=== PATIENT | female | born 1985 | race American Indian/Alaskan Native ===

== ENCOUNTER 2018-04-24 04:37 | Inpatient (IN) | payer BC ==
[2018-04-24 05:19] VITALS: BMI 29.9
[2018-04-24] MEDS ORDERED: Lactated Ringer's 1,000 ML IV ONE (05:44)
[2018-04-24] MEDS ORDERED: cefOXitin IV 2 gm in Dextrose 2 GM/50 ML BAG IVPB ONE (05:47)
[2018-04-24] MEDS ORDERED: Sodium Citrate/Citric Acid 15 ml Sol PO ONE (06:00)
[2018-04-24] MEDS ORDERED: Sodium Citrate/Citric Acid 15 ml Sol ONE (06:07)
[2018-04-24] MEDS ORDERED: Oxytocin 20 units in LR 2,000 ML IV ONE (06:07)
[2018-04-24 06:09] LABS: BASO % 0.6 % (0.0-2.0); EOS % 0.4 % (0.0-4.0); HEMOGLOBIN 9.4 g/dL (11.0-16.0); LYMPH # 1.5 K/uL (1.0-4.3); LYMPH % 25.3 % (20.0-40.0); MEAN CELL VOLUME 75.6 fL (81.0-99.0); MEAN CORPUSCULAR HEMOGLOBIN 23.7 pg (27.0-31.0); MEAN CORPUSCULAR HGB CONC 31.4 g/dL (33.0-37.0); MEAN PLATELET VOLUME 10.6 fL (7.2-11.7); MONO # 0.5 K/uL (0.0-0.8); MONO % 9.1 % (0.0-10.0); NEUT # 3.8 K/uL (1.8-7.0); NEUT % 64.6 % (50.0-75.0); NRBC % 0.3 % (0.0-2.0); RBC 3.98 Mil/uL (3.80-5.20); RED CELL DISTRIBUTION WIDTH 20.7 % (11.5-14.5); WHITE BLOOD COUNT 5.8 K/uL (4.8-10.8)
[2018-04-24] MEDS ORDERED: Morphine 1 mg/ml preservative-free Inj(Duramorph) ONE (06:10)
[2018-04-24] MEDS ORDERED: ePHEDrine 50 mg/ml Inj ONE (06:11)
[2018-04-24 06:15] LABS: SQUAMOUS EPITHIAL 46 /hpf (0-5); URINE BACTERIA FEW (<OCC); URINE BILIRUBIN NEGATIVE (NEGATIVE); URINE BLOOD NEGATIVE (NEGATIVE); URINE CLARITY Hazy (Clear); URINE COLOR Yellow (YELLOW); URINE GLUCOSE (UA) NORMAL (Normal); URINE LEUKOCYTE ESTERASE TRACE Leu/uL (Negative); URINE PROTEIN 1+ mg/dL (NEGATIVE); URINE UROBILINOGEN NORMAL mg/dL (0.2-1.0)
--- NOTE | 2018-04-24 06:17 | OBHP ---
Datetime: 04/24/2018 06:09 IP Adm Impression: Term, intrauterine ; No Active Labor; Intact Membranes IP Chief Complaint Other: Previous C/S x 2 IP Admit Plan: Admit to unit; Initiate Section protocol Pelvic Type - PN: Adequate Extremities - PN: Normal Abdomen - PN: Normal Back - PN: Normal Breast - PN: Not Done Lungs - PN: Normal Heart - PN: Normal Thyroid - PN: Normal Neurologic - PN: Normal HEENT - PN: Normal General - PN: Normal FHR - Baseline A Provider: 140 Membranes, Provider: Intact Contraction Comments Provider: Irregular EGA AdmitDate IP: 39.5 Vital Signs Provider: Reviewed IP Chief Complaint: Uterine contractions; Scheduled Section; Other NICHD Variability Prov Fetus A: Moderate 6-25bpm NICHD Accel Fetus A IP Provider: 10X10 Dilatation, Provider: 0 Effacement, Provider: 50 Station, Provider: floating Genitourinary Exam: Normal DTRs - PN: Normal
[2018-04-24 06:29] LABS: ALB/GLOB RATIO 1.5 (1.0-2.1); ALT/SGPT 12 U/L (9-52); AST/SGOT 18 U/L (14-36); BLOOD UREA NITROGEN 6 mg/dL (7-17); GFR NON-AFRICAN AMERICAN > 60
[2018-04-24] MEDS ORDERED: Oxytocin 10 Units/ml Inj ONE (06:46)
--- NOTE | 2018-04-24 08:17 | OBADHP ---
Datetime: 04/24/2018 06:09 IP Chief Complaint Other: Previous C/S x 2 Admit Comment, IP Provider: 33 yo female with an IUP at 39.5 weeks and presents with c/o of UC's and was schedule for a repeat C/S but wanted to ask questions re a . I examined the patient and she was closed and with appears to be a large baby. All of her questions were answered to her fu ll satisfaction and she requested to continue with the plan of repeat C/S. Admits to adequate FM and denies LOF, VB or VD. Denies any issues with her . PMHx: Negative PSHx: C/S x 2 Meds: PNV NKDA Social Hx: Negative x 3 Pe: see above A_P Term Previous C/S x 2 Irregular contractions with a closed cx For repeat C/S, per Dr. Fitzpatrick Will admit at this time Admitting and Pre-Op orders placed NST Reactive Pelvic Type - PN: Adequate Extremities - PN: Normal Abdomen - PN: Normal Back - PN: Normal Breast - PN: Not Done Lungs - PN: Normal Heart - PN: Normal Thyroid - PN: Normal Neurologic - PN: Normal HEENT - PN: Normal General - PN: Normal Presentation-Admit: Vertex FHR - Baseline A Provider: 140 Membranes, Provider: Intact Contraction Comments Provider: Irregular Gestation - Est Wks by US: 39.5 IP Hx Assessment: No care records available at this time Vital Signs Provider: Reviewed IP Chief Complaint: Uterine contractions; Scheduled Section; Other NICHD Variability Prov Fetus A: Moderate 6-25bpm NICHD Accel Fetus A IP Provider: 10X10 FHR Category Provider Fetus A: Category I NICHD Decel Fetus A IP Provider: None Dilatation, Provider: 0 Effacement, Provider: 50 Station, Provider: floating Genitourinary Exam: Normal DTRs - PN: Normal EGA AdmitDate IP: 39.5 IP Adm Impression: Term, intrauterine ; No Active Labor; Intact Membranes IP Admit Plan: Admit to unit; Initiate Section protocol
[2018-04-24 09:47] LABS: SQUAMOUS EPITHIAL < 1 /hpf (0-5); URINE BILIRUBIN NEGATIVE (NEGATIVE); URINE BLOOD NEGATIVE (NEGATIVE); URINE CLARITY Clear (Clear); URINE COLOR Straw (YELLOW); URINE GLUCOSE (UA) NORMAL (Normal); URINE LEUKOCYTE ESTERASE NEG Leu/uL (Negative); URINE PROTEIN 1+ mg/dL (NEGATIVE); URINE UROBILINOGEN NORMAL mg/dL (0.2-1.0)
[2018-04-24] MEDS: Prenatal Multivit/Folic Acid/Iron Tab PO SCH (09:54)
[2018-04-24] MEDS: Simethicone 80 mg Chewtab PO SCH ×4 (09:54→22:31)
[2018-04-24] MEDS: Oxycodone/Acetaminophen 5/325 mg Tab PO PRN ×2 (13:33→20:33)
[2018-04-24] MEDS ORDERED: DiphenhydrAMINE 50 mg/ml Inj IVP PRN (20:18)
[2018-04-24] MEDS ORDERED: DiphenhydrAMINE 50 mg/ml Inj ONE (20:32)
[2018-04-25] MEDS: Oxycodone/Acetaminophen 5/325 mg Tab PO PRN ×5 (02:00→19:31)
[2018-04-25 08:39] LABS: HEMOGLOBIN 9.1 g/dL (11.0-16.0); MEAN CELL VOLUME 74.8 fL (81.0-99.0); MEAN CORPUSCULAR HEMOGLOBIN 23.9 pg (27.0-31.0); MEAN CORPUSCULAR HGB CONC 31.9 g/dL (33.0-37.0); MEAN PLATELET VOLUME 9.9 fL (7.2-11.7); RBC 3.8 Mil/uL (3.80-5.20); RED CELL DISTRIBUTION WIDTH 20.5 % (11.5-14.5)
[2018-04-25] MEDS: Simethicone 80 mg Chewtab PO SCH ×4 (10:31→21:15)
[2018-04-25] MEDS: Prenatal Multivit/Folic Acid/Iron Tab PO SCH (10:32)
[2018-04-26] MEDS: Oxycodone/Acetaminophen 5/325 mg Tab PO PRN ×3 (00:04→16:50)
[2018-04-26] MEDS: Prenatal Multivit/Folic Acid/Iron Tab PO SCH (09:36)
[2018-04-26] MEDS: Simethicone 80 mg Chewtab PO SCH ×4 (09:37→21:49)
--- NOTE | 2018-04-26 09:45 | OBPPN ---
Datetime: 04/26/2018 08:16 PP Pain Prov: Within normal limits PP Nausea Prov: Denies PP Flatus Prov: Yes PP BM Prov: No PP Heart Prov: Normal PP Lungs Prov: Normal PP Abdomen/Uterus Prov: Normal PP Lochia Prov: Normal PP Extremities Prov: Normal PP C/S Incision Prov: Normal PP Progress Prov: Normal PP Impression Prov: Normal progression PP Plan Prov: Continue present management PP Progress Note Prov: Patient seen and examined at bedside. Per nursing no acute events overnight. Patient is doing well, pain is a 8-9/10 on scale with out medication which improved to 6/10 with perc ocet. Lochia is moderate. She is ambulating minimally, tolerating diet. She reports passing flatus, h as not had a bowel movement. Urinating without difficulty. She is . Denies headaches, di zziness, cp, palpitations, sob, urinary symptoms. VS: 121/80 105 98.9 Gen: NAD CV: RRR Lungs: CTA B/L Abd: Soft, fundus firm above umbilicus, incision c/d/i with sututre Ext: +ankle edema bilaterally, no calf tenderness Labs: 5.8>9.4/30.1<115 8.0>9.1/28.9<125 O negative Rubella Immune A/P: 33 year old at 39w5d s/p RLTCS POD#2 -Stable, afebrile -Pain control with Motrin Q6H SATURNINO and percocet as needed -Encourage ambulation, hydration, and ISS use -Rh negative s/p rhogam 04/24/18 -Continue routine postoperative care surgery consult r/o hernia - -Plan discussed with Dr Amari Ruano DO PGY-2 IP PP Procedures: Rhogam Vital Signs Provider PP: Reviewed
--- NOTE | 2018-04-26 11:20 | CP.PCM.CON ---
History of Present Illness - History of Present Illness History of Present Illness: Surgical consult note for Dr. Bryson HPI: Patient is a 33 year old female status post C section x3 who present for evaluation of umbilical hernia. She states that she first developed her hernia during her first with intermittent pain. During this , she states that she noticed a bulge to the area. She also states she has diasthesis of her abdominal muscles. She currently states she has no pain to the area. She has mild pain in her low abdominal after her C section. She denies skin changes, redness, nausea, vomiting, diarrhea, constipation, fever, chills, headache, dizziness. PMH: none PSH: C section x3 Home meds: vitamins Allergies: NKDA Social history: no history of tobacco, alcohol use, drug use. Family history: none Review of Systems - Constitutional Constitutional: absent: Chills, Fever - EENT Eyes: absent: Change in Vision, Loss of Vision Nose/Mouth/Throat: absent: Epistaxis, Sore Throat - Cardiovascular Cardiovascular: absent: Chest Pain, Dyspnea - Respiratory Respiratory: absent: Cough, Dyspnea - Gastrointestinal Gastrointestinal: Abdominal Pain. absent: Cramping, Nausea, Vomiting - Genitourinary Genitourinary: absent: Dysuria - Musculoskeletal Musculoskeletal: absent: Back Pain - Neurological Neurological: absent: Abnormal Movements, Confusion, Focal Weakness - Psychiatric Psychiatric: absent: Anxiety, Depression Meds Home Medications: Home Medication List Medication Instructions Recorded Confirmed Type Ibuprofen [Motrin] 600 mg PO Q8H PRN #30 tab 04/26/18 Rx Allergies/Adverse Reactions: Allergies Allergy/AdvReac Type Severity Reaction Status Date / Time No Known Allergies Allergy Verified 04/24/18 05:19 - Medications Medications: Current Medications Diphenhydramine HCl (Benadryl) 25 mg IVP Q6H PRN PRN Reason: Itching / Pruritus Last Admin: 04/24/18 20:31 Dose: 25 mg Docusate Sodium (Colace) 100 mg PO BID [facility] Last Admin: 04/26/18 09:37 Dose: 100 mg Ferrous Sulfate (Feosol) 325 mg PO DAILY [facility] Last Admin: 04/26/18 09:37 Dose: 325 mg Lactated Ringer's (Lactated Ringer's) 1,000 mls @ 999 mls/hr IV .Q1H1M ONE Last Admin: 04/24/18 05:09 Dose: 999 mls/hr Ibuprofen (Motrin Tab) 600 mg PO Q6H [facility] Last Admin: 04/26/18 09:29 Dose: 600 mg Oxycodone/Acetaminophen (Percocet 5/325 Mg Tab) 1 tab PO Q4H PRN PRN Reason: Pain, moderate (4-7) Stop: 04/27/18 07:20 Last Admin: 04/26/18 09:30 Dose: 1 tab Oxycodone/Acetaminophen (Percocet 5/325 Mg Tab) 2 tab PO Q4H PRN PRN Reason: Pain, severe (8-10) Stop: 04/27/18 07:20 Last Admin: 04/26/18 00:04 Dose: 2 tab Multivit/Folic Acid/Iron () 1 tab PO DAILY [facility] Last Admin: 04/26/18 09:36 Dose: 1 tab Simethicone (Mylicon Chew Tab) 80 mg PO QID [facility] Last Admin: 04/26/18 09:37 Dose: 80 mg Physical Exam - Constitutional Appears: Well, No Acute Distress Additional comments: Patient is resting comfortably in bed, . - Head Exam Head Exam: ATRAUMATIC, NORMOCEPHALIC - Eye Exam Eye Exam: EOMI, PERRL - ENT Exam ENT Exam: Mucous Membranes Moist - Respiratory Exam Respiratory Exam: Clear to Auscultation Bilateral, NORMAL BREATHING PATTERN. absent: Rales, Rhonchi, Wheezes, Respiratory Distress, Stridor - Cardiovascular Exam Cardiovascular Exam: REGULAR RHYTHM, +S1, +S2. absent: Gallop, Rubs, Systolic Murmur - GI/Abdominal Exam GI & Abdominal Exam: Hernia (Umbilical ), Soft, Tenderness (Lower quadrant tenderness, appropriate for C section). absent: Firm, Guarding, Rebound, Rigid Additional comments: Infraumbilical fundus lower quadrant tenderness, appropriate status post C section no umbilical area tenderness reduced umbilical hernia - Extremities Exam Extremities exam: Positive for: pedal pulses present - Neurological Exam Neurological exam: Alert, Oriented x3 - Skin Skin Exam: Dry, Intact, Warm Results - Vital Signs Recent Vital Signs: Last Vital Signs Temp 98 F 04/26/18 08:00 Pulse 89 04/26/18 08:00 Resp 18 04/26/18 08:00 BP 121/86 04/26/18 08:00 Pulse Ox 100 04/26/18 08:00 - Labs Result Diagrams: 04/25/18 08:31 04/24/18 06:03 Assessment & Plan - Assessment and Plan (Free Text) Assessment: 33 year old female status post C section who presents for umbilical hernia Plan: Patient instructed to follow up with Dr. Bryson or Dr. Chaudhary as outpatient Wear abdominal binder and support as needed Monitor for signs of obstruction including pain, vomiting. Case discussed with Dr. Chaudhary, covering for Dr. Braydon Rodrigues, PGY1
--- NOTE | 2018-04-26 18:09 | OBDS ---
DELIVERY PERSONNEL Delivery Doctor: Sinan Fitzpatrick MD [employer] Supervisor: Sravanthi Pineda RN Anesthesiologist: zhou MATERNAL INFORMATION Delivery Anesthesia: Spinal Medications in Delivery: PITOCIN Estimated Blood Loss (ml): 800 Placenta Cultured: Yes Maternal Complications: None Provider Comments: dr fitzpatrick private baby deliverd in [place]. end clean no cm LABOR SUMMARY EDC: 04/26/2018 00:00 No. Babies in Womb: 1 Attempted: No Labor Anesthesia: None LABOR INFORMATION Onset of Labor: 04/23/2018 22:00 Group B Beta Strep: Negative Steroids Given: None Reason Steroids Not Administered: Not Applicable MEMBRANES Membranes Rupture Method: Artificial Rupture of Membranes: 04/24/2018 06:39 Length of Rupture (hrs): 0.02 STAGES OF LABOR Stage 3 hrs: 0 Stage 3 min: 2 Total Time in Labor hrs: 8 Total Time in Labor min: 42 CSECTION DELIVERY Primary Indication: Repeat Elective CSection Urgency: Elective CSection Incidence: Repeat CSection Incision: Lower Uterine Transverse BABY A INFORMATION Delivery Date/Time: 04/24/2018 06:40 Method of Delivery: Born in Route : No : N/A Forceps: N/A Vacuum Extraction: N/A Shoulder Dystocia : No SHOULDER DYSTOCIA BABY A Infant Delivery Date/Time: 04/24/2018 06:40 PRESENTATION/POSITION BABY A Presentation: Cephalic Cephalic Presentation: Vertex Vertex Position: Right Occipital Posterior Breech Presentation: N/A PLACENTA INFORMATION BABY A Placenta Delivery Time : 04/24/2018 06:42 Placenta Method of Delivery: Manual Removal Placenta Status: Delivered SCORES BABY A Heart Rate 1 min: >100 bpm Resp Effort 1 min: Good Cry Reflex Irritability 1 min: Cough or Sneeze or Pulls Away Muscle Tone 1 min: Active Motion Color 1 min: Body [place], Extremities Blue SCORE 1 MIN: 9 Heart Rate 5 min: >100 bpm Resp Effort 5 min: Good Cry Reflex Irritability 5 min: Cough or Sneeze or Pulls Away Muscle Tone 5 min: Active Motion Color 5 min: Body [place], Extremities Blue SCORE 5 MIN: 9 INFANT INFORMATION BABY A Gestational Age at Delivery: 39.5 Gestational Status: Term Outcome : Liveborn Condition : Stable Infant Sex: Female IDENTIFICATION/MEDS BABY A ID Band Number: [id number] Sensor Number: [id number] WEIGHT/LENGTH BABY A Infant Birthweight (gms): 4130 Infant Weight (lb): 9 Infant Weight (oz): 2 Infant Length Inches: 20.50 Infant Length cms: 52.1 CORD INFORMATION BABY A No. Cord Vessels: 3 Nuchal Cord : N/A Cord Blood Taken: Yes Suction: Mouth; Nose ASSESSMENT BABY A Complications: None Physical Findings at Delivery: Within Normal Limits Respirations: Appears Normal Play Reader/ALS Called : No Infant Care By: DR SUÁREZ Transferred To: Nursery
[2018-04-27] MEDS: Oxycodone/Acetaminophen 5/325 mg Tab PO PRN (00:03)
[2018-04-27 00:48] VITALS: O2SAT 99
--- NOTE | 2018-04-27 05:20 | OP ---
PROCEDURE DATE: 04/24/2018 PREOPERATIVE DIAGNOSIS: A 33-year-old 3, para 2 at 39 weeks and 4 days for repeat section with abdominal pain. POSTOPERATIVE DIAGNOSIS: A 33-year-old 3, para 2 at 39 weeks and 4 days for repeat section with abdominal pain. SURGEON: Sinan Fitzpatrick MD CELL TUBER MACHINE: Ronn Vance MD and Dr. Whitney. COMPLICATIONS: None. PROCEDURE PERFORMED: Repeat section. ESTIMATED BLOOD LOSS: 700 mL. DESCRIPTION OF THE PROCEDURE: After informed consent was obtained, the patient was brought to the operating room and placed on the table, where spinal anesthesia was given. Once the anesthesia was given, the patient was prepped and draped in normal sterile fashion. After that, a skin incision was made at the site of the previous incision, the incision was made with a knife, the subcutaneous tissue was cut with a Bovie. The fascia was excised on both sides using curved [place] scissors. The fascia was from the site of the umbilicus and then at the site of the rectus muscle. Rectus muscle was , the peritoneum was lifted up with two Allis scissors and it was cut with a knife and then the peritoneum was excised. Bladder blade was placed. Bladder flap was created. Lower uterine segment incision was made with a knife. It was extended on both sides using Bovie and curved [place] scissors. Baby was delivered in REDD position. Cord was clamped and cut. Baby was handed to the awaiting maintenance specialist. The uterus could not be exteriorized because of the scarring after uterine. All the blood clots were taken out. The uterine incision was closed with #1 Vicryl in running interlocking fashion. Second layer was closed with the same stitch. After that, gutters were cleared of all clots and hemostatic. All the laps were removed. The peritoneum was closed using 2-0 Vicryl in running interlocking fashion. Muscle was closed using 2-0 Vicryl in running interlocking fashion. The fascia was closed using #0 Vicryl in running interlocking fashion. Skin was closed using 3-0 Monocryl on straight needle. The patient tolerated the procedure well. Lap, sponge, and instrument count were correct x2. Sinan Fitzpatrick MD [facility] # [id number]
--- NOTE | 2018-04-27 06:46 | OBPPN ---
Datetime: 04/27/2018 06:44 PP Pain Prov: Within normal limits PP Nausea Prov: Denies PP Flatus Prov: Yes PP BM Prov: Yes PP Abdomen/Uterus Prov: Normal PP Lochia Prov: Normal PP Extremities Prov: Normal PP Impression Prov: Normal progression PP Plan Prov: Discharge PP Progress Note Prov: pt was sen at bed side pain under control,no n/v, tolerati fg deit, voiding, min lochia, flayus+ pod#3 s/p c/s dc home motri prn no sex cont pnv f/u in 2we Vital Signs Provider PP: Reviewed; Within Normal Limits
[2018-04-27] MEDS ORDERED: Tdap Vaccine 0.5 ml Vial (10-64 yrs) IM ONE (08:00)
[2018-04-27 10:14] VITALS: BP 110/70
[2018-04-27] MEDS: Simethicone 80 mg Chewtab PO SCH ×2 (10:34→14:12)
[2018-04-27] MEDS: Prenatal Multivit/Folic Acid/Iron Tab PO SCH (10:36)
[2018-04-27] MEDS ORDERED: Influenza Vaccine 60 mcg/0.5 mL SYR (4YR UP) IM ONE (17:00)
[2018-04-27 21:24] VITALS: PULSE 93; RESP 20; TEMP 99.1
== END 2018-04-27 16:45 | disposition home or self-care (01) | DRG 788 ==
LOC: C.EROB 04:37 → C.4D 05:46 → C.4M 09:15
PROVIDERS: ADMIT Obstetrics & Gynecology; ATTEND Obstetrics & Gynecology
PROC: 10D00Z1 Extraction of Products of Conception, Low, Open Approach (ICD-10-PCS; principal; 2018-04-24)
DX: O34.211 Maternal care for low transverse scar from previous cesarean delivery (principal); Z3A.39 39 weeks gestation of pregnancy; Z37.0 Single live birth